=== PATIENT | female | born 1985 | race Caucasian/White ===

== ENCOUNTER 2024-05-05 11:54 | Observation (INO) | payer BC ==
--- NOTE | 2024-05-05 12:26 | ED ---
Chest Pain HPI - General Chief Complaint: Chest Pain Stated Complaint: Chest pain Time Seen by Provider: 05/05/24 12:02 Source: patient Mode of arrival: ambulatory Limitations: no limitations - History of Present Illness Initial Comments: Patient is a 38-year-old female, past medical history thyroid disease, MTF HR gene mutation, anxiety presenting today for substernal chest pain. Patient states that she and her were driving yesterday, she been driving for about 2 hours when she began experiencing some sharp substernal chest pain. She pulled over to the side of the road and this lasted a few minutes. For now she let her ride home. She woke up that again this morning around 7 AM with similar chest pain. It resolved spontaneously. No exacerbating or alleviating factors. Yesterday patient did notice a dry cough, no hemoptysis or sputum production. Patient and her , earlier this week did drive back from to, known [place], 7 hours from their home. They did take a few short breaks but no extended breaks. Patient denies any shortness of breath. Chest pain is not currently present. Patient states that she felt like an ache in her left shoulder and back but did not feel that it radiated from her chest. Endorses mild nausea. Denies is any diaphoresis, shortness of breath or vomiting. Denies abdominal pain, diarrhea. Denies lightheadedness, dizziness, palpitations or numbness. Does endorse generalized weakness and a mild headache. Patient's mother suffered a heart attack and stroke in her 50s. Has 7 siblings, none of which have had history of CAD. Patient has no history of diabetes, high cholesterol or hypertension. Patient also notes that on Monday, earlier this week she did note a cramp in her right calf and felt a "nodule" in the back of it that has since resolved. Patient is a non-smoker. - Related Data Home Medications Medication Instructions Recorded Confirmed Aspirin EC [Ecotrin Low Dose] 81 mg PO DAILY 05/05/24 05/05/24 FLUoxetine HCL [PROzac] 10 mg PO DAILY 05/05/24 05/05/24 FLUoxetine HCL [PROzac] 20 mg PO DAILY 05/05/24 05/05/24 Fabb 2.2-5-1mg Tab 1 tab PO HS 05/05/24 05/05/24 Levothyroxine Sodium 112 mcg PO AC-BRKFST 05/05/24 05/05/24 Multivitamins, Thera [Multivitamin 1 tab PO HS 05/05/24 05/05/24 (formulary)] diazePAM [Valium] 5 mg PO DAILY PRN 05/05/24 05/05/24 Previous Rx's Medication Instructions Recorded Acetaminophen Tab [Tylenol] 650 mg PO Q6HR PRN tab 05/06/24 Allergies Allergy/AdvReac Type Severity Reaction Status Date / Time Penicillins Allergy Rash/Hives Verified 05/05/24 14:23 Review of Systems ROS Statement: Those systems with pertinent positive or pertinent negative responses have been documented in the HPI. EKG Findings - EKG Comments: EKG Findings:: Sinus rhythm. 78 bpm. Intervals within normal limits. Normal axis. No ST elevations or depressions, no arrhythmia. No EKG available for comparison Past Medical History Additional Past Medical History / Comment(s): MTHFR blood disorder, endometriosis History of Any Multi-Drug Resistant Organisms: None Reported Additional Past Surgical History / Comment(s): IVF egg retrieval Past Psychological History: No Psychological Hx Reported Smoking Status: Never smoker Past Alcohol Use History: None Reported Past Drug Use History: None Reported - Past Family History Mother Family Medical History: Cancer, CVA/TIA Additional Family Medical History / Comment(s): NH age 50's, lung cancer at age 60. Father Additional Family Medical History / Comment(s): bipolar, hit by a vehicle and at age 68. Sister(s) Family Medical History: Cancer Additional Family Medical History / Comment(s): breast cancer, passed at age 43. General Exam - General Exam Comments Initial Comments: PE: CONSTITUTIONAL: no apparent distress, well appearing SKIN: warm, dry, no jaundice, hives or petechiae EYES: pupils are equally round, extraocular movements intact without nystagmus, clear conjunctiva, non-icteric sclera HENT: normocephalic, atraumatic, moist mucus membranes, oropharynx clear without exudates NECK: Nontender and supple with no nuchal rigidity, no lymphadenopathy, full range of motion PULMONARY: clear to auscultation without wheezes, rhonchi, or rales, normal excursion, no accessory muscle use and no stridor CARDIOVASCULAR: regular rate, rhythm, normal S1 and S2. No appreciated murmurs. Strong radial pulses with intact distal perfusion. reproducible chest pain to the left of the chest, no skin changes GASTROINTESTINAL: soft, non-tender, non-distended, no palpable masses, no rebound or guarding LYMPHATICS: no edema in lower extremities MUSCULOSKELETAL: Extremities have no gross deformity, no edema, redness, or sw elling, no calf tenderness NEUROLOGIC: _a/o x 3, GCS 15, normal mentation and speech. Moves all extremities x 4 without motor or sensory deficit PSYCHIATRIC: _normal mood and affect, thought process is clear and linear Limitations: no limitations Course Vital Signs 05/05/24 05/05/24 05/05/24 11:55 12:15 15:25 Temperature 97.9 F Pulse Rate 74 69 58 L Pulse Rate [ Dietitian ] Respiratory 18 16 16 Rate Blood Pressure 113/72 124/76 123/76 O2 Sat by Pulse 100 100 98 Oximetry 05/05/24 05/05/24 05/05/24 19:00 20:00 21:00 Temperature Pulse Rate 58 L 61 58 L Pulse Rate [ Dietitian ] Respiratory 16 18 16 Rate Blood Pressure 128/80 120/70 124/76 O2 Sat by Pulse 98 98 99 Oximetry 05/05/24 21:14 Temperature Pulse Rate Pulse Rate [ 69 Dietitian ] Respiratory Rate Blood Pressure O2 Sat by Pulse Oximetry - Reevaluation(s) Reevaluation #1: Labs and imaging reviewed. Grossly within normal limits. Abnormal values not concerning for acute pathology related to presenting complaint. 05/05/24 13:09 Reevaluation #2: CT PE reviewed by radiologist, no acute process, no evidence of pulmonary embolus I reviewed patient's CT, I agree there is no evidence of pulmonary embolism 05/05/24 13:42 Chest Pain MDM - MDM Was pt. sent in by a medical professional or institution (, PA, TYPISTS SUPERVISOR, urgent care, hospital, or prison...) When possible be specific @ -No Did you speak to anyone other than the patient for history (EMS, parent, family, police, friend...)? What history was obtained from this source @ -No Did you review nursing and triage notes (agree or disagree)? Why? @ -I reviewed and agree with nursing and triage notes Were old charts reviewed (outside hosp., previous admission, EMS record, old EKG, old radiological studies, urgent care reports/EKG's, prison records)? Report findings @ -Patient's most recent visit to the emergency department was in 2014, no other charts since then Differential Diagnosis (chest pain, altered mental status, abdominal pain women, abdominal pain men, vaginal bleeding, weakness, fever, dyspnea, syncope, headache, dizziness, GI bleed, back pain, seizure, CVA, palpatations, mental health, musculoskeletal)? @ -Differential Chest Pain: Stable Angina, Unstable Angina, STEMI, NSTEMI, pericarditis, myocarditis, chostochondritis, Pneumothorax, Musculoskeletal, Esophageal Spasm GERD, Cholecystitis, Pancreatitis, Zoster, this is not meant to be an all-inclusive list. EKG interpreted by me (3pts min.). @ -As above X-rays interpreted by me (1pt min.). @ -None done CT interpreted by me (1pt min.). @ -Please see EMERGENCY DEPARTMENT COURSE What testing was considered but not performed or refused? (CT, X-rays, U/S, labs)? Why? @ -None What meds were considered but not given or refused? Why? @ -None Did you discuss the management of the patient with other professionals (professionals i.e. , PA, TYPISTS SUPERVISOR, lab, RT, psych nurse, older adult social work specialist, laboratory equipment cleaner, teacher, assistant chief nursing officer, ed case manager)? Give summary @ -No Was smoking cessation discussed for >3mins.? @ -No Was critical care preformed (if so, how long)? @ -No Were there social determinants of health that impacted care today? How? (Homelessness, low income, unemployed, alcoholism, drug addiction, transportation, low edu. Level, literacy, decrease access to med. care, correction, rehab)? @ -No Was there de-escalation of care discussed even if they declined (Discuss DNR or withdrawal of care, Hospice)? DNR status @ -No What co-morbidities impacted this encounter? (DM, HTN, Smoking, COPD, CAD, Cancer, CVA, ARF, Chemo, Hep., AIDS, mental health diagnosis, sleep apnea, morbid obesity)? @ -None Was patient admitted / discharged? Hospital course, mention meds given and r oute, prescriptions, significant lab abnormalities, going to OR and other pertinent info. @ -Patient admitted for observation Patient is a 38-year-old female presenting today for left-sided chest pain. Vital signs stable on arrival, temp 97.9, heart rate 74 bpm, respiratory rate 18, blood pressure 113/72, pulse ox 100%. On my assessment patient is well- appearing and in no acute distress. On my assessment patient is well-appearing and in no acute distress. Patient had taken 1 chewable aspirin prior to arrival so patient was given additional 243 mg aspirin, CT PE study obtained, ultrasound lower extremities, EKG, Tylenol, BNP, CMP, lipase, magnesium level, troponin, coagulation studies, CBC, TSH, beta-hCG ordered. Patient agreeable with plan of care. Ultrasound of the lower extremities negative for DVT, CT PE study negative for PE, labs reassuring however due to patient's risk factors, family hx discussed plan for observation. Patient was agreeable and comfortable plan of care. Timoteo tellez accepted for admission to Dr. Montes. Patient admitted in stable condition. Undiagnosed new problem with uncertain prognosis? @ -Yes Drug Therapy requiring intensive monitoring for toxicity (Heparin, Nitro, Insulin, Cardizem)? @ -No Were any procedures done? @ -No Diagnosis/symptom? @ -Chest pain Acute, or Chronic, or Acute on Chronic? @ -Acute Uncomplicated (without systemic symptoms) or Complicated (systemic symptoms)? @ -complicated Side effects of treatment? @ -No Exacerbation, Progression, or Severe Exacerbation? @ -No Poses a threat to life or bodily function? How? (Chest pain, [place], NH, pneumonia, PE, COPD, DKA, ARF, appy, cholecystitis, CVA, Diverticulitis, Homicidal, Suicidal, threat to staff... and all critical care pts) @ Yes- chest pain, if 2/2 ACS, is potentially life threatening - Wells Criteria Clinical Symptoms of DVT: (3.0) Yes No Alternative Diagnosis: (0) No Immobilization of Surgery in Previous 4 Weeks: (1.5) Yes Previous DVT/PE: (0) No Hemoptysis: (0) No Malignancy: (0) No Disposition Clinical Impression: Chest pain Disposition: ADMITTED IP TO THIS [facility] Condition: Stable Time of Disposition: 14:30
[2024-05-05 12:31] LABS: Basophils % (A) 1 %; Eosinophils # (A) 0.1 k/uL (0-0.7); Eosinophils % (A) 2 %; HCT 42.1 % (34.0-46.0); HGB 14.2 gm/dL (11.4-16.0); Lymphocytes # (A) 1.5 k/uL (1.0-4.8); Lymphocytes % (A) 31 %; MCH 31.7 pg (25.0-35.0); MCHC 33.8 g/dL (31.0-37.0); MCV 93.5 fL (80.0-100.0); Mean Platelet Volume 7.2; Monocytes # (A) 0.3 k/uL (0-1.0); Monocytes % (A) 6 %; Neutrophils # (A) 2.8 k/uL (1.3-7.7); Neutrophils % (A) 59 %; Platelet Count 235 k/uL (150-450); WBC 4.7 k/uL (3.8-10.6)
[2024-05-05 12:40] LABS: Partial Thromboplastin Time 24.4 sec (22.0-30.0); Prothrombin Time 11.1 sec (10.0-12.5)
[2024-05-05 12:41] LABS: ALT 18 U/L (4-34); AST 18 U/L (14-36); African American GFR (CKD) >90 (>60 ml/min/1.73 sqM); Albumin 4.8 g/dL (3.5-5.0); Alkaline Phosphatase 56 U/L (38-126); Anion Gap 10 mmol/L; Blood Urea Nitrogen 14 mg/dL (7-17); Calcium 9.2 mg/dL (8.4-10.2); Carbon Dioxide 23 mmol/L (22-30); Chloride 109 mmol/L (98-107); Glucose 78 mg/dL (74-99); Lipase 160 U/L (23-300); Magnesium 2.1 mg/dL (1.6-2.3); Non-African American GFR(CKD) >90 (>60 ml/min/1.73 sqM); Potassium 3.8 mmol/L (3.5-5.1); Sodium 142 mmol/L (137-145); Total Bilirubin 0.6 mg/dL (0.2-1.3); Total Protein 7.9 g/dL (6.3-8.2)
[2024-05-05 12:49] LABS: NT-Pro-B-Type Natriuretic Pept 141 pg/mL
[2024-05-05] MEDS: ASPIRIN 81 MG PO STA (13:22)
[2024-05-05] MEDS: ACETAMINOPHEN TAB 500 MG TAB PO STA (13:23)
--- NOTE | 2024-05-05 13:26 | CT ---
EXAMINATION TYPE: CT chest angio for PE CT DLP: 212.7 mGycm, Automated exposure control for dose reduction was used. DATE OF EXAM: 05/05/2024 1:03 PM COMPARISON: None. CLINICAL INDICATION:Female, 38 years old with history of Chest pain, recent 7 hour travel, MTHFR gene ; Chest pain, recent 7 hour travel, MTHFR blood disorder. TECHNIQUE/CONTRAST: CTA scan of the thorax is performed with IV Contrast, patient injected with 100 mL of Isovue 370, MIP images are created and reviewed these are created on a separate workstation.. FINDINGS: Pulmonary Artery: There is no evidence for a filling defect within the pulmonary vasculature to sugge st acute pulmonary embolism. The pulmonary artery is of normal size. Lungs/Pleura: No evidence of focal consolidation, pleural effusion or pneumothorax. Airway: Large airways are patent. Heart: Heart is within normal limits for size. Vasculature: No evidence of aortic aneurysm. Mediastinum: No gross evidence of adenopathy. Musculoskeletal: No acute osseous abnormalities Soft Tissues/lymph nodes: Unremarkable. Lower neck: No significant findings. Upper Abdomen: No significant findings. IMPRESSION: No evidence of pulmonary embolism.
--- NOTE | 2024-05-05 13:49 | US ---
EXAMINATION TYPE: US venous doppler duplex LE RT DATE OF EXAM: 05/05/2024 12:22 PM COMPARISON: NONE CLINICAL INDICATION: Female, 38 years old with history of right calf cramping, "knot" recent travel, DVT r/o; Calf cramping. Aspirin. Factor 5. No redness. No swelling. SIDE PERFORMED: Right TECHNIQUE: The lower extremity deep venous system is examined utilizing real time linear array sonog jamel with graded compression, doppler sonography and color-flow sonography. VESSELS IMAGED: Common Femoral Vein Deep Femoral Vein Greater Saphenous Vein * Femoral Vein Popliteal Vein Small Saphenous Vein * Proximal Calf Veins (* superficial vessels) Right Leg: Negative for DVT IMPRESSION: Grayscale, color doppler, spectral doppler imaging performed of the deep veins of the lo wer extremities. There is normal flow, compressibility, vascular waveforms.
[2024-05-05] MEDS: KETOROLAC 15 MG/ML 1 ML VIAL IVP STA (14:10)
[2024-05-05] MEDS ORDERED: NALOXONE 0.4 MG/ML 1 ML VIAL IV PRN (15:38)
[2024-05-05] MEDS ORDERED: IBUPROFEN 400 MG TAB PO PRN (15:38)
[2024-05-05] MEDS ORDERED: ACETAMINOPHEN TAB 325 MG TAB PO PRN (15:38)
[2024-05-05] MEDS ORDERED: diazePAM 5 MG TAB PO PRN (15:41)
--- NOTE | 2024-05-05 17:19 | P.HPIM ---
History of Present Illness H&P Date: 05/05/24 Chief Complaint: Chest pain 38-year-old female, past medical history thyroid disease, MTF HR gene mutation, anxiety presenting today for substernal chest pain. Patient states that she and her were driving yesterday, she been driving for about 2 hours when she began experiencing some sharp substernal chest pain. She pulled over to the side of the road and this lasted a few minutes. For now she let her ride home. She woke up that again this morning around 7 AM with similar chest pain. It resolved spontaneously. No exacerbating or alleviating factors. Yesterday patient did notice a dry cough, no hemoptysis or sputum production. Patient and her , earlier this week did drive back from to, [place], 7 hours from their home. They did take a few short breaks but no extended breaks. Patient denies any shortness of breath. Chest pain is not currently present. Patient states that she felt like an ache in her left shoulder and back but did not feel that it radiated from her chest. Endorses mild nausea. Denies is any diaphoresis, shortness of breath or vomiting. Denies abdominal pain, diarrhea. Denies lightheadedness, dizziness, palpitations or numbness. Does endorse generalized weakness and a mild headache. Patient's mother suffered a heart attack and stroke in her 50s. Has 7 siblings, none of which have had history of CAD. Patient has no history of diabetes, high cholesterol or hypertension. Patient also notes that on Monday, earlier this week she did note a cramp in her right calf and felt a "nodule" in the back of it that has since resolved. Patient is a non-smoker. Blood work completed in ED reveals a WBC of 4.7, hemoglobin of 14.2 and platelet count of 235, sodium 142, potassium 3.8, BUNs/creatinine 14/0.64 EKG is negative for any acute ST or T wave changes Patient is being admitted for further evaluation chest pain Review of Systems REVIEW OF SYSTEMS: CONSTITUTIONAL: No fever, no malaise, no fatigue. HEENT: No recent visual problems or hearing problems. Denied any sore throat. CARDIOVASCULAR: No chest pain, orthopnea, PND, no palpitations, no syncope. PULMONARY: No shortness of breath, no cough, no hemoptysis. GASTROINTESTINAL: No diarrhea, no nausea, no vomiting, no abdominal pain. NEUROLOGICAL: No headaches, no weakness, no numbness. HEMATOLOGICAL: Denies any bleeding or petechiae. GENITOURINARY: Denies any burning micturition, frequency, or urgency. MUSCULOSKELETAL/RHEUMATOLOGICAL: Denies any joint pain, swelling, or any muscle pain. ENDOCRINE: Denies any polyuria or polydipsia. The rest of the 14-point review of systems is negative. Past Medical History Additional Past Medical History / Comment(s): MTHFR blood disorder, endometriosis History of Any Multi-Drug Resistant Organisms: None Reported Additional Past Surgical History / Comment(s): IVF egg retrieval Past Psychological History: No Psychological Hx Reported Smoking Status: Never smoker Past Alcohol Use History: None Reported Past Drug Use History: None Reported Medications and Allergies Home Medications Medication Instructions Recorded Confirmed Type Aspirin EC [Ecotrin Low Dose] 81 mg PO DAILY 05/05/24 05/05/24 History FLUoxetine HCL [PROzac] 10 mg PO DAILY 05/05/24 05/05/24 History FLUoxetine HCL [PROzac] 20 mg PO DAILY 05/05/24 05/05/24 History Fabb 2.2-5-1mg Tab 1 tab PO HS 05/05/24 05/05/24 History Levothyroxine Sodium 112 mcg PO AC-BRKFST 05/05/24 05/05/24 History Multivitamins, Thera [Multivitamin 1 tab PO HS 05/05/24 05/05/24 History (formulary)] diazePAM [Valium] 5 mg PO DAILY PRN 05/05/24 05/05/24 History Allergies Allergy/AdvReac Type Severity Reaction Status Date / Time Penicillins Allergy Rash/Hives Verified 05/05/24 14:23 Physical Exam Vitals: Vital Signs Temp Pulse Resp BP Pulse Ox 05/05/24 15:25 58 L 16 123/76 98 05/05/24 12:15 69 16 124/76 100 05/05/24 11:55 97.9 F 74 18 113/72 100 Intake and Output 05/05/24 05/05/24 05/05/24 06:59 14:59 22:59 Other: Weight 61.235 kg CONSTITUTIONAL: no apparent distress, well appearing SKIN: warm, dry, no jaundice, hives or petechiae EYES: pupils are equally round, extraocular movements intact without nystagmus, clear conjunctiva, non-icteric sclera HENT: normocephalic, atraumatic, moist mucus membranes, oropharynx clear without exudates NECK: Nontender and supple with no nuchal rigidity, no lymphadenopathy, full range of motion PULMONARY: clear to auscultation without wheezes, rhonchi, or rales, normal excursion, no accessory muscle use and no stridor CARDIOVASCULAR: regular rate, rhythm, normal S1 and S2. No appreciated murmurs. Strong radial pulses with intact distal perfusion GASTROINTESTINAL: soft, non-tender, non-distended, no palpable masses, no rebound or guarding MUSCULOSKELETAL: Extremities are nontender to palpation and have no gross deformity, no edema, redness, or swelling NEUROLOGIC: _a/o x 3, GCS 15, normal mentation and speech. Moves all extremities x 4 without motor or sensory deficit PSYCHIATRIC: _normal mood and affect, thought process is clear and linear Results CBC & Chem 7: 05/05/24 12:22 05/05/24 12:22 Labs: Abnormal Lab Results - Last 24 Hours (Table) 05/05/24 Range/Units 12:22 Chloride 109 H (98-107) mmol/L Assessment and Plan Assessment: 1. Chest pain rule out acute coronary syndrome --First set of troponin and EKG was unremarkable in ED; will monitor EKG and cycle troponin -Recommend 2D echo -Consult cardiology for further evaluation 2. Hypothyroidism; levothyroxine 112 mcg daily 3. Endometriosis; patient takes Valium and Prozac DVT prophylaxis; SCDs CODE STATUS; full code
[2024-05-05] MEDS: FAMOTIDINE 20 MG TAB PO SCH (23:31)
[2024-05-06 02:08] VITALS: PULSE 64
[2024-05-06] MEDS: LEVOTHYROXINE 112 MCG TAB PO SCH (06:53)
[2024-05-06 07:35] VITALS: BP 104/64; RESP 13; TEMP 97.9
[2024-05-06] MEDS: ASPIRIN 81 MG PO SCH (08:25)
[2024-05-06] MEDS: FLUoxetine HCL 20 MG CAP PO SCH (08:25)
[2024-05-06] MEDS: FLUoxetine HCL 10 MG CAP PO SCH (08:38)
--- NOTE | 2024-05-06 09:00 | P.CRDCN ---
History of Present Illness Consult date: 05/06/24 Consult reason: chest pain History of present illness: This is a 38-year-old with no previous cardiac history and does not follow with a lbd teacher. She has a past medical history of MTHFR gene mutation, hypothyroidism, depression and anxiety. We have been asked to evaluate the patient for chest pain. Patient has left-sided sharp mild chest pain. Patient was driving at the time of onset and pulled over and the pain had lasted for few minutes. She had it occur again and resolved spontaneously. She does have a dry cough, no sputum production. Patient had a cramp in her right calf earlier in the week and studies were ordered while in the emergency center and negative for DVT. Blood pressure 104/64, heart rate 64, pulse ox 98% on room air. EKG: Sinus rhythm with no ST-T wave changes. CTA of the chest reveals no pulmonary embolism. Right lower extremity duplex negative for DVT. Laboratory studies: CBC, INR, CMP unremarkable. hCG not detected. TSH within normal normal range at 0.594. Troponins negative x 4. proBNP 151. Home cardiac medications: Aspirin 81 mg daily, also on levothyroxine 112 mcg daily. Review Of Systems: At the time of my exam: CONSTITUTIONAL: Denies fever or chills. HEENT: Denies blurred vision, vision changes, or eye pain. Denies hemoptysis CARDIOVASCULAR: Denies chest pain. Denies orthopnea. Denies PND. Denies palpitations RESPIRATORY: Denies shortness of breath. GASTROINTESTINAL: Denies abdominal pain. Denies nausea or vomiting. HEMATOLOGIC: Denies bleeding disorders. GENITOURINARY: Denies any blood in urine. SKIN: Denies puritis. Denies rash. Physical examination: Gen: This is a 38-year-old female in no acute distress VS: reviewed HEENT: Head is atraumatic, normocephalic. Pupils equal, round. Sclerae is anicteric. NECK: Supple. No JVD. LUNGS: Clear to auscultation. No wheezes or rhonchi. No intercostal retractions. HEART: Regular rate and rhythm. No murmur. ABDOMEN: Soft No tenderness. EXTREMITIES: No pedal edema. No calf tenderness. NEUROLOGICAL: Patient is awake, alert and oriented x3. Assessment: Atypical chest pain, acute coronary syndrome ruled out with negative troponins Hypothyroidism MTHFR gene mutation Plan: Schedule patient for stress echocardiogram today Obtain 2-D echocardiogram and Doppler study to assess cardiac structure and function If testing is unremarkable, patient is cleared for discharge home Thank you kindly for this consultation. Nurse practitioner note has been reviewed, I agree with documented findings and plan of care. Patient was seen and examined. Past Medical History Additional Past Medical History / Comment(s): MTHFR factor 5 blood disorder, endometriosis, palpatations during . History of Any Multi-Drug Resistant Organisms: None Reported Past Surgical History: Section Additional Past Surgical History / Comment(s): endometriosis lap procedure. IVF egg retrieval Past Psychological History: Anxiety, Depression, Panic Disorder Smoking Status: Never smoker Past Alcohol Use History: None Reported Past Drug Use History: None Reported - Past Family History Mother Family Medical History: Cancer, CVA/TIA Additional Family Medical History / Comment(s): [place] age 50's, lung cancer at age 60. Father Additional Family Medical History / Comment(s): bipolar, hit by a vehicle and at age 68. Sister(s) Family Medical History: Cancer Additional Family Medical History / Comment(s): breast cancer, passed at age 43. Medications and Allergies Home Medications Medication Instructions Recorded Confirmed Type Aspirin EC [Ecotrin Low Dose] 81 mg PO DAILY 05/05/24 05/05/24 History FLUoxetine HCL [PROzac] 10 mg PO DAILY 05/05/24 05/05/24 History FLUoxetine HCL [PROzac] 20 mg PO DAILY 05/05/24 05/05/24 History Fabb 2.2-5-1mg Tab 1 tab PO HS 05/05/24 05/05/24 History Levothyroxine Sodium 112 mcg PO AC-BRKFST 05/05/24 05/05/24 History Multivitamins, Thera [Multivitamin 1 tab PO HS 05/05/24 05/05/24 History (formulary)] diazePAM [Valium] 5 mg PO DAILY PRN 05/05/24 05/05/24 History Allergies Allergy/AdvReac Type Severity Reaction Status Date / Time Penicillins Allergy Rash/Hives Verified 05/05/24 14:23 Physical Exam Vitals: Vital Signs Temp Pulse Pulse Resp BP BP Pulse Ox 05/06/24 07:00 97.9 F 64 13 104/64 98 05/06/24 02:00 98.2 F 64 17 97/58 98 05/05/24 22:10 97.9 F 58 L 15 112/71 98 05/05/24 21:14 69 05/05/24 21:00 58 L 16 124/76 99 05/05/24 20:00 61 18 120/70 98 05/05/24 19:00 58 L 16 128/80 98 05/05/24 15:25 58 L 16 123/76 98 05/05/24 12:15 69 16 124/76 100 05/05/24 11:55 97.9 F 74 18 113/72 100 Intake and Output 05/05/24 05/06/24 05/06/24 22:59 06:59 14:59 Intake Total 540 Balance 540 Intake: Oral 540 Other: # Voids 2 Weight 61.235 kg Results 05/05/24 12:22 05/05/24 12:22 Cardiac Enzymes 05/05/24 05/05/24 05/05/24 Range/Units 12:22 12:22 15:24 AST 18 (14-36) U/L Troponin I <0.012 <0.012 (0.000-0.034) ng/mL 05/05/24 05/05/24 Range/Units 19:27 21:36 AST (14-36) U/L Troponin I <0.012 <0.012 (0.000-0.034) ng/mL Coagulation 05/05/24 Range/Units 12:22 PT 11.1 (10.0-12.5) sec APTT 24.4 (22.0-30.0) sec CBC 05/05/24 Range/Units 12:22 WBC 4.7 (3.8-10.6) k/uL RBC 4.50 (3.80-5.40) m/uL Hgb 14.2 (11.4-16.0) gm/dL Hct 42.1 (34.0-46.0) % Plt Count 235 (150-450) k/uL Comprehensive Metabolic Panel 05/05/24 Range/Units 12:22 Sodium 142 (137-145) mmol/L Potassium 3.8 (3.5-5.1) mmol/L Chloride 109 H (98-107) mmol/L Carbon Dioxide 23 (22-30) mmol/L BUN 14 (7-17) mg/dL Creatinine 0.64 (0.52-1.04) mg/dL Glucose 78 (74-99) mg/dL Calcium 9.2 (8.4-10.2) mg/dL AST 18 (14-36) U/L ALT 18 (4-34) U/L Alkaline Phosphatase 56 (38-126) U/L Total Protein 7.9 (6.3-8.2) g/dL Albumin 4.8 (3.5-5.0) g/dL Current Medications Generic Name Dose Route Start Last Admin Trade Name Freq PRN Reason Stop Dose Admin Acetaminophen 650 mg 05/05/24 15:38 Acetaminophen Tab 325 Mg Tab PO Q6HR PRN Mild Pain or Fever > 100.5 Aspirin 81 mg 05/06/24 09:00 Aspirin 81 Mg PO DAILY BREANNE Diazepam 5 mg 05/05/24 15:41 Diazepam 5 Mg Tab PO DAILY PRN Anxiety Famotidine 20 mg 05/05/24 21:00 05/05/24 23:31 Famotidine 20 Mg Tab PO 20 mg BID [facility] Administration Fluoxetine HCl 10 mg 05/06/24 09:00 Fluoxetine Hcl 10 Mg Cap PO DAILY [facility] Fluoxetine HCl 20 mg 05/06/24 09:00 Fluoxetine Hcl 20 Mg Cap PO DAILY [facility] Ibuprofen 400 mg 05/05/24 15:38 Ibuprofen 400 Mg Tab PO Q6HR PRN Mild Pain or Fever > 100.5 Levothyroxine Sodium 112 mcg 05/06/24 07:30 05/06/24 06:53 Levothyroxine 112 Mcg Tab PO 112 mcg AC-BRKFST BREANNE Administration Naloxone HCl 0.2 mg 05/05/24 15:38 Naloxone 0.4 Mg/Ml 1 Ml Vial IV Q2M PRN Opioid Reversal Intake and Output 05/05/24 05/06/24 05/06/24 22:59 06:59 14:59 Intake Total 540 Balance 540 Intake: Oral 540 Other: # Voids 2 Weight 61.235 kg 05/05/24 12:22 05/05/24 12:22
[2024-05-06 10:17] LABS: Basophils # (A) 0.04 X 10*3/uL (0.00-0.10); Eosinophils # (A) 0.13 X 10*3/uL (0.04-0.35); Eosinophils % (A) 3.3 %; HCT 37.8 % (37.2-46.3); HGB 12.7 g/dL (12.0-15.0); Lymphocytes # (A) 1.58 X 10*3/uL (0.90-5.00); Lymphocytes % (A) 40.3 %; MCH 31.8 pg (27.0-32.0); MCHC 33.6 g/dL (32.0-37.0); MCV 94.5 FL (80.0-97.0); Mean Platelet Volume 9.8 FL (9.5-12.2); Monocytes # (A) 0.41 X 10*3/uL (0.20-1.00); Monocytes % (A) 10.5 %; NRBC Per 100 WBC 0 X 10*3/uL (0.00-0.01); Neutrophils # (A) 1.75 X 10*3/uL (1.80-7.70); Neutrophils % (A) 44.6 %; Platelet Count 189 X 10*3/uL (140-440); RDW 12.3 % (11.5-14.5); WBC 3.92 X 10*3/uL (4.50-10.00)
[2024-05-06 10:29] LABS: BUN/Creat Ratio 23.71 Ratio (12.00-20.00); Blood Urea Nitrogen 16.6 mg/dL (9.0-27.0); Calcium 8.7 mg/dL (8.7-10.3); Carbon Dioxide 21.9 mmol/L (21.6-31.8); Chloride 107 mmol/L (96-109); Glucose 77 mg/dL (70-110); Potassium 4.3 mmol/L (3.5-5.5); Sodium 140 mmol/L (135-145)
--- NOTE | 2024-05-06 12:08 | CA ---
Stress Echo Report Kimberlee Blakely Age: 38 Gender: F : 1985 Exam Date: 05/06/2024 10:52 Exam Location: [facility] Ht (in): 67 Wt (lb): 145 Ordering Physician: Chris Nash MD ([id number]) Referring Physician: Saad ONTIVEROS Dispute Resolution Analyst: [email or web address],, Technologist Procedure CPT: Indication: CP ICD-9 Codes: Rhythm: Patient History: Chest pain Cardiac Medications: Medications in past 24 hours: Contrast: Stress Results Protocol: Дмитрий Total dose(mL): Exercise Duration (min:sec): 10:[address] Depression (mm): Angina Score: Flores Score: METS: 11.7 Resting HR: 68 Resting BP: 152 / 49 Peak HR: 170 Peak BP: 130 / 56 Max Predicted HR: 181 94 % Max Predicted HR Target HR: 154 Double Product: 14449 Stress Summary: BP Response: Reason for Termination: MAX EXERTION Cardiac Symptoms: CHEST PAIN ECG Analysis Resting ECG: Normal sinus rhythm normal axis normal intervals Stress ECG: Patient exercised on Дмитрий protocol for 10 minutes achieving 85% of predicted maximal heart rate without chest pain or diagnostic ST segment depression Arrhythmia: Echo Analysis Resting Echo: Normal left ventricular size wall motion systolic function Peak Echo Analysis: Normal hyperdynamic response MEASUREMENTS (Male/Female) Normal Values CONCLUSIONS Excellent exercise tolerance Negative stress test by EKG criteria Negative stress echo Dr. Chris Nash MD (Electronically Signed) Final Date: 06 May 2024 12:07
--- NOTE | 2024-05-06 12:20 | CA ---
Transthoracic Echo Report Name: Kimberlee Blakely Age: 38 Gender: F : 1985 Exam Date: 05/06/2024 08:49 Exam Location: [facility] Ht (in): 67 Wt (lb): 135 Ordering Physician: June Almanzar Attending/Referring Phys: [id number], Yohan Engineer Conductor Little Thompson RDCS Procedure CPT: Indications: LVF Cardiac Hx: Technical Quality: Fair Contrast 1: Total Dose (mL): Contrast 2: Total Dose (mL): MEASUREMENTS (Male / Female) Normal Values 2D ECHO LV Diastolic Diameter PLAX 3.7 cm 4.2 - 5.9 / 3.9 - 5.3 cm LV Systolic Diameter PLAX 2.4 cm IVS Diastolic Thickness 0.8 cm 0.6 - 1.0 / 0.6 - 0.9 cm LVPW Diastolic Thickness 0.9 cm 0.6 - 1.0 / 0.6 - 0.9 cm LV Relative Wall Thickness 0.5 RV Internal Dim ED PLAX 2.9 cm LA Volume 43.0 cm??? 18 - 58 / 22 - 52 cm??? LA Volume Index 25.3 cm???/m??? 16 - 28 cm???/m??? M-MODE Aortic Root Diameter MM 2.5 cm LA Systolic Diameter MM 3.1 cm LA Ao Ratio MM 1.2 AV Cusp Separation MM 2.0 cm DOPPLER AV Peak Velocity 109.0 cm/s AV Peak Gradient 4.8 mmHg AV Mean Velocity 74.0 cm/s AV Mean Gradient 2.5 mmHg AV Velocity Time Integral 22.5 cm LVOT Peak Velocity 96.8 cm/s LVOT Peak Gradient 3.7 mmHg LVOT Velocity Time Integral 22.5 cm MV Area PHT 2.2 cm??? Mitral E Point Velocity 70.0 cm/s Mitral A Point Velocity 64.3 cm/s Mitral E to A Ratio 1.1 MV Deceleration Time 343.9 ms MV E' Velocity 14.4 cm/s Mitral E to MV E' Ratio 4.8 TR Peak Velocity 219.6 cm/s TR Peak Gradient 19.3 mmHg Right Ventricular Systolic Press 23.8 mmHg FINDINGS Left Ventricle Normal left ventricular size, wall thickness, systolic function with no obvious regional wall motion abnormalities. Normal left ventricular diastolic filling pattern for age. The ejection fraction is visually estimated at 55-60 %. Right Ventricle The right ventricle is normal in size and function. Right ventricular systolic pressure within normal limits. Right Atrium The right atrium is normal in size. Left Atrium The left atrium is normal in size. Mitral Valve Structurally normal mitral valve without significant stenosis or prolapse. There is no mitral regurgitation. Aortic Valve Structurally normal aortic valve without significant sclerosis or stenosis. There is no aortic regurgitation. Tricuspid Valve Structurally normal tricuspid valve without significant stenosis. Pulmonary artery systolic pressure is normal. Mild tricuspid regurgitation. Pulmonic Valve Structurally normal pulmonic valve without significant stenosis. There is no pulmonic regurgitation. Pericardium Normal pericardium without effusion. Aorta Normal aortic root dimension. CONCLUSIONS Normal LV function Previewed by: Dr. Chris Nash MD (Electronically Signed) Final Date: 06 May 2024 12:19
--- NOTE | 2024-05-09 10:42 | P.DS ---
Providers Date of admission: 05/05/24 15:38 Expected date of discharge: 05/06/24 Attending physician: Suni Montes MD Consults: 05/05/24 15:38 Consult Physician Routine Consulting Provider: Alfonso Bowden Consult Reason/Comments: Chest pain Do you want consulting provider notified?: Yes Primary care physician: Samantha Henning MD Hospital Course: Final diagnosis -Chest pain, ruled out acute coronary syndrome -Hypothyroidism -Endometriosis history -GI prophylaxis -DVT prophylaxis -full code Discharge disposition Patient is being discharged in a stable condition with guarded prognosis to home. Patient will follow-up with Dr. Henning in the outpatient setting upon discharge. Patient is to continue with current medications and outpatient follow-up with cardiology as scheduled. Total time taken is greater than 35 minutes. Hospital course This is a 38-year-old female who was recently admitted with chest pain and ruled out ACS with history of hypothyroidism being closely monitored. Patient evaluated by cardiology recommending a stress test which was negative and has been cleared for discharge home. Patient reports feeling improved and would like to go home. Patient to follow-up with primary care provider on discharge. Please refer to cardiology note for further HPI. Currently no reports of chest pain, shortness of breath, or palpitations. Patient is afebrile. No reports of nausea or vomiting and patient is tolerating diet. Patient will be discharged home today. Physical exam: Gen: This is a 38-year-old female who is awake, alert and oriented x 3, well- developed, well-nourished HEENT: Head is atraumatic, normocephalic. Pupils equal, round. Sclerae is anicteric. NECK: Supple. No JVD. No lymphadenopathy. No thyromegaly. LUNGS: Clear to auscultation. No wheezes or rhonchi. No intercostal retractions. HEART: Regular rate and rhythm. No murmur. ABDOMEN: Soft. Bowel sounds are present. No masses. No tenderness. EXTREMITIES: No pedal edema. No calf tenderness. NEUROLOGICAL: Patient is awake, alert and oriented x3. Cranial nerves 2 through 12 are grossly intact. Please refer to medication reconciliation sheet for a list of medications. The impression and plan of care has been dictated by Carmen Arango, Nurse Practitioner as directed. Dr. Aileen MD I have performed a history and examination and MDM of this patient, discussed the same with the dictator, and agree with the dictator's assessment and plan as written ,documented as a scribe. Based on total visit time, I have performed more than 50% of the visit. Patient Condition at Discharge: Stable Plan - Discharge Summary New Discharge Prescriptions: New Acetaminophen Tab [Tylenol] 650 mg PO Q6HR PRN tab PRN Reason: Mild Pain Or Fever > 100.5 Continue Fabb 2.2-5-1mg Tab 1 tab PO HS diazePAM [Valium] 5 mg PO DAILY PRN PRN Reason: Anxiety FLUoxetine HCL [PROzac] 10 mg PO DAILY FLUoxetine HCL [PROzac] 20 mg PO DAILY Multivitamins, Thera [Multivitamin (formulary)] 1 tab PO HS Aspirin EC [Ecotrin Low Dose] 81 mg PO DAILY Levothyroxine Sodium 112 mcg PO AC-BRKFST Discharge Medication List Aspirin EC [Ecotrin Low Dose] 81 mg PO DAILY 05/05/24 [History] FLUoxetine HCL [PROzac] 10 mg PO DAILY 05/05/24 [History] FLUoxetine HCL [PROzac] 20 mg PO DAILY 05/05/24 [History] Fabb 2.2-5-1mg Tab 1 tab PO HS 05/05/24 [History] Levothyroxine Sodium 112 mcg PO AC-BRKFST 05/05/24 [History] Multivitamins, Thera [Multivitamin (formulary)] 1 tab PO HS 05/05/24 [History] diazePAM [Valium] 5 mg PO DAILY PRN 05/05/24 [History] Acetaminophen Tab [Tylenol] 650 mg PO Q6HR PRN tab 05/06/24 [Rx] Follow up Appointment(s)/Referral(s): Samantha Henning MD [Primary Care Provider] - 1-2 days Chris Nash MD [STAFF PHYSICIAN] - 1 Week (office will call you with an appointment date and time. ) Patient Instructions/Handouts: Chest Pain (DC) Activity/Diet/Wound Care/Special Instructions: Activity limited until follow-up Follow-up with primary care provider on discharge Follow-up with cardiology outpatient Continue taking medications as prescribed Discharge Disposition: HOME SELF-CARE
== END 2024-05-06 14:48 | disposition home or self-care (01) ==
LOC: EC 11:54 → 6NMEDSUR 15:38
PROVIDERS: ADMIT Internal Medicine; ATTEND Internal Medicine
DX: R07.89 Other chest pain (principal); E72.12 Methylenetetrahydrofolate reductase deficiency; N80.9 Endometriosis, unspecified; E03.9 Hypothyroidism, unspecified; F41.9 Anxiety disorder, unspecified; F32.A Depression, unspecified; Z79.82 Long term (current) use of aspirin; Z79.890 Hormone replacement therapy; Z79.899 Other long term (current) drug therapy; Z88.0 Allergy status to penicillin
CPT/HCPCS: 96374; 99285; 36415; 93005; 93306; 93351; 83880; 80053; 80048; 83690; 83735; 84443; 84484; 85025 ×2; 85610; 85730; 84703; 93971; 71275; G0378 ×2; J1885; Q9967